=== PATIENT | female | born 1970 | race Caucasian/White ===

== ENCOUNTER 2021-12-20 12:06 | Emergency (ER) | payer BC, SELFPAY ==
[2021-12-20 12:08] VITALS: BP 187/101; PULSE 88; RESP 18; TEMP 35.8; O2SAT 95; BMI 47.0
--- NOTE | 2021-12-20 14:30 | CT_ITS ---
STUDY: CT BRAIN WITHOUT CONTRAST REASON FOR EXAM: Female, 51 years old. 7 onset of severe headaches. RADIATION DOSAGE (If Supplied By Facility): CTDIvol = ( 44.99 ) mGy, DLP = ( 779.24 ) mGycm TECHNIQUE: Transaxial CT imaging of the brain was performed without administration of intravenous contrast material. Individualized dose optimization techniques were used for this CT. COMPARISON: No relevant priors. FINDINGS: Normal soft tissue structures. Normal calvarium. Normal size ventricles and extra-axial spaces for the patient''s age. Normal white matter tracts of the cerebral hemispheres. Normal basal ganglia and thalami. Normal brainstem. Normal cerebellum. There is no intracranial hemorrhage. There are no findings of an acute ischemic infarction. Normal visualized paranasal sinuses. CT/Brain/Head without Contrast IMPRESSION: Normal unenhanced CT scan of the brain. Electronically Signed: Kirill Pleitez MD at 15:33 EDT ,
--- NOTE | 2021-12-20 14:30 | EX.ED.VIS.HA ---
HPI History of Present Illness Chief Complaint: Headache Narrative Narrative: 51-year-old female presenting with headache which started at 8 AM this morning. She went to her primary care physician and states that her blood pressure was normal. He sent her to the emergency room because of the acute onset nature of the headache. She does not have any blurry vision, slurred speech, dizziness currently. She states she was a little bit dizzy earlier today but this is resolved. She does not have any chest pain or shortness of breath. No nausea or vomiting. No light sensitivity or sound sensitivity. She rates her headache pain as a 7. When asked to localize it she holds her whole head with her hands. No history of formal migraine diagnosis PFSH PFS Medical History Hypertension Allergy/AdvReac Type Severity Reaction Status Date / Time Penicillins [PCN] Allergy Shortness Verified 12/20/21 12:07 of breath Social History Smoking Status: Current every day smoker tobacco type: cigarettes ROS ROS ED Constitutional Constitutional ED: Denies chills or fever(s) Eyes Eyes: Denies blurry vision or change in vision ENT ENT ED: Denies rhinorrhea or sore throat Cardiovascular Cardiovascular: Denies chest pain or palpitations Respiratory/Chest Respiratory/Chest: Denies cough Gastrointestinal Gastrointestinal: Denies abdominal pain or constipation Genitourinary Genitourinary ED: Denies dysuria or hematuria Musculoskeletal Musculoskeletal: Denies arthralgias or back pain Integumentary Denies abscess or Abrasions Neurologic Neurologic: Reports headache(s); Denies paresthesias Psychiatric Psychiatric: Denies anxiety or depression EXAM Physical Exam Const Vital Signs: 12/20/21 12:08 Temperature 96.5 F L Temperature Source Temporal Pulse Rate 88 Respiratory Rate 18 Blood Pressure 187/101 H Blood Pressure Mean 129 Pulse Ox 95 Oxygen Delivery Method Room Air Positive well nourished General Appearance ED: NAD; Negative for pallor HEENT Reports normocephalic and moist mucous membranes atraumatic Eyes PERRL and EOMs intact bilaterally General Eye ED: Negative for pale conjunctiva or scleral icterus Neck no lymphadenopathy and no meningeal signs Resp normal respiratory effort and clear to auscultation bilaterally Auscultation: Negative for rales, rhonchi or wheezes Cardio Negative for regular rate or regular rhythm GI non-tender Extremity normal to inspection Neuro oriented x3 and CN's II-XII intact bilaterally Sensorium / Orientation: awake and alert Speech: speech normal Motor Exam: strength 5/5 throughout Psych mental status grossly normal Skin General Skin Exam: Negative for jaundice or pallor MDM MDM MDM Narrative Medical decision making narrative: Presenting with headache which started earlier today. She is not taking anything all day for headache. She states that she has high blood pressure so she did know she can take Tylenol or ibuprofen. She saw her primary care doctor today who sent her to the emergency room because of her headache. She states that her blood pressure at office today was normal. Her initial blood pressure was 187/101 but after rechecking this at the bedside it was 140/87. Patient has no photophobia, phonophobia, blurred vision, dizziness. I did have an IV line established. I gave her Compazine and Benadryl. CBC is within normal limits. BMP shows normal renal function and electrolytes. Her CO2 was slightly elevated at 34 which is only minimally elevated. CT brain is obtained and is negative for acute or cranial findings. Patient feels better on reevaluation at 4:50 PM. She will be discharged home. She is to follow-up with her PCP. Impression: 1. headache Lab Data Attestation: I reviewed the patient's lab results. Labs: Laboratory Results - last 24 hr 12/20/21 12/20/21 15:00 15:00 WBC 7.2 RBC 5.20 Hgb 15.8 H Hct 46.6 MCV 89.6 MCH 30.4 MCHC 33.9 RDW Std Deviation 50.7 H RDW Coeff of Lita 15.2 H Plt Count 294 MPV 9.4 Immature Gran % (Auto) 0.100 Neut % (Auto) 52.3 Lymph % (Auto) 39.5 [place] % (Auto) 6.3 Eos % (Auto) 1.5 Baso % (Auto) 0.3 Absolute Neuts (auto) 3.7 Absolute Lymphs (auto) 2.83 Nucleated RBC % 0 Sodium 140 Potassium 3.6 Chloride 101 Carbon Dioxide 34.0 H Anion Gap 5 BUN 15 Creatinine 0.67 Estim Creat Clear Calc 77.68 Est GFR (MDRD) Af Amer 119 Est GFR (MDRD) Non-Af 98 BUN/Creatinine Ratio 22.5 H Glucose 90 Calcium 9.9 Radiography Diagnostic Testing: Clinical Impression(s) from Imaging Studies Brain CT 12/20/21 14:30 IMPRESSION: Normal unenhanced CT scan of the brain. Electronically Signed: Kirill Pleitez MD at 15:33 EDT Reading Location ID and State: [facility] / [place] , Service support , Discharge Plan Triage Chief Complaint: Headache Other Complaint: Dizziness ED Provider: Felipe Liao Dx/Rx/DC Orders Instructions: ED Headache Unspecified Primary Care Provider: Roberto Yee Referrals: Roberto Yee MD [Primary Care Provider] - Disposition Disposition: Home, Self Care
[2021-12-20] MEDS: proCHLORPERazine 10 MG/2 ML Vial IV (15:06)
[2021-12-20] MEDS: DiphenhydrAMINE 50 MG/ML Syringe 25 MG IV (15:06)
[2021-12-20 15:10] LABS: Absolute Lymphocyte Count 2.83 X10^3/uL (0.83-4.51); Absolute Neutrophil Count 3.7 X10^3/uL (2.0-7.7); Basophil# 0.02 X10^3/uL; Basophil% 0.3 % (0-1); Eosinophil# 0.11 X10^3/uL; Eosinophils% 1.5 % (0-5); Hematocrit 46.6 % (37-47); Hemoglobin 15.8 g/dL (12.0-15.0); Lymphocyte # 2.83 X10^3/ul (0.83-4.51); Lymphocyte % 39.5 % (19-41); Mean Corp Hgb Conc 33.9 g/dL (32-36); Mean Corpuscular Hgb 30.4 pg (27.0-32.0); Mean Corpuscular Volume 89.6 fL (81-99); Mean Platelet Vol. 9.4 fl (6.2-12.0); Monocyte# 0.45 X10^3/uL; Monocyte% 6.3 % (0-10); NRBC Flagged by Analyzer 0 % (0-5); Neutrophil # 3.74 X10^3/uL (2.7-7.7); Neutrophil % 52.3 % (47-70); Platelet Count 294 K/mm3 (150-450); RBC Distribution Width CV 15.2 % (11.6-14.6); RBC Distribution Width SD 50.7 fl (35.1-43.9); White Blood Count 7.2 K/mm3 (4.4-11.0)
[2021-12-20 15:18] LABS: Anion Gap 5 (5-15); BUN 15 mg/dL (7-18); BUN/Creat Ratio 22.5 RATIO (10-20); Calcium,Total 9.9 mg/dL (8.5-10.1); Chloride 101 mmol/L (98-107); Creatinine, Serum 0.67 mg/dL (0.55-1.02); EST Glomerular Filtration Rate 98 mL/min (>60); Est Glom Filt Rate - Afr Amer 119 mL/min (>60); Estimated Creatinine Clearance 77.68 ml/min; Glucose 90 mg/dL (74-106); Potassium 3.6 mmol/L (3.5-5.1); Sodium Level 140 mmol/L (136-145)
[2021-12-20 17:10] VITALS: PULSE 82; RESP 16; O2SAT 97
== END 2021-12-20 17:12 | disposition home or self-care (01) ==
PROVIDERS: Emergency Provider Student in an Organized Health Care Education/Training Program; PCP Family Medicine; Visit Provider Student in an Organized Health Care Education/Training Program
DX: R51.9 Headache, unspecified (principal); F17.210 Nicotine dependence, cigarettes, uncomplicated
CPT/HCPCS: 70450; 80048; 85025; 96374; 96375; 99284; A4216

== ENCOUNTER 2023-12-16 17:49 | Emergency (ER) | payer OTHER, SELFPAY ==
[2023-12-16 17:50] VITALS: BP 161/76; PULSE 89; RESP 18; TEMP 36.4; O2SAT 95; BMI 49.8
[2023-12-16 21:42] VITALS: BP 136/75; PULSE 71; RESP 18; TEMP 36.6; O2SAT 94
--- NOTE | 2023-12-17 02:08 | EDS_ITS ---
HPI History of Present Illness Chief Complaint: Cellulitis Narrative Narrative: Chief complaint and HPI: Left facial swelling. 53-year-old female with history of nasal bone/sinus fracture, HTN presents for evaluation of left facial swelling. Patient states for the past couple days she has had left facial swelling. Swelling is located in the left cheek. She states the swelling is improving. She states she has tenderness in this area. She states this has happened to her before and it was secondary to a sinus infection. She states she was told she is prone to sinus infections given her previous nasal bone/sinus fracture. She denies any swelling elsewhere. Denies any fever, chills, URI symptoms, headache, neck pain, ear pain, eye pain/vision changes, dental pain. Review of systems: See HPI Medications: As listed on the chart Allergies: As listed on the chart PFSH: Per chart Vital signs: As listed on the chart. Reviewed. Physical exam: Gen: A&O x3, NAD Head: Normocephalic, atraumatic Eyes: No sclera icterus, conjunctiva clear, PERRL, EOMI, no periorbital edema ENT: TMs clear BL, moist mucous membranes, posterior oropharynx unremarkable, uvula midline, teeth nontender-no signs of abscess/infection or gingivitis, tolerating secretions, no oral swelling, no Dada angina, mild swelling to the left cheek compared to the right-no erythema or signs of cellulitis, left maxillary sinus is tender to palpation Neck: Trachea midline, No JVD, Full ROM, No meningismus CV: RRR, no murmurs, no peripheral edema Resp: Lungs CTA BL, no w/r/c Neuro: Alert, oriented, grossly intact, sensation intact Psych: Cooperative, appropriate mood and affect [facility] Medical History Hypertension Home Medications ?Medication ?Instructions ?Recorded ?Last Taken ?Type doxycycline hyclate 100 mg capsule 100 mg PO BID 7 days #14 caps 12/16/23 Unknown Rx Allergy/AdvReac Type Severity Reaction Status Date / Time Penicillins (PCN) Allergy Shortness Verified 12/16/23 17:50 of breath Social History Smoking Status: Current every day smoker tobacco type: cigarettes EXAM Physical Exam Const Vital Signs: 12/16/23 17:50 12/16/23 21:42 Temperature 97.6 F L 97.9 F Temperature Source Oral Pulse Rate 89 71 Respiratory Rate 18 18 Blood Pressure 161/76 H 136/75 H Blood Pressure Mean 104 95 Pulse Ox 95 94 Oxygen Delivery Method Room Air MDM MDM MDM Narrative Medical decision making narrative: 53-year-old female presents for evaluation of left cheek swelling. She states that this happened to her in the past and she was treated for sinusitis and it resolved. See physical exam findings. Mild swelling of the left cheek. No periorbital cellulitis or cellulitis of the face. Tenderness to palpation of the left maxillary sinus. Patient's symptoms may be secondary to sinus infection. Patient has an allergy to penicillin. Patient will be placed on doxycycline for 7 days giving this is mild disease. Return precautions were explained such as worsening swelling, erythema, increased pain, fevers, nausea, vomiting. She confirmed understand the plan. Patient stable to discharge home. Patient requesting work note, this was provided. Impression 1. Left cheek swelling 2. Possible sinusitis Discharge Plan Triage Chief Complaint: Cellulitis ED Provider: Saeed Cheung Dx/Rx/DC Orders Clinical Impression: Swelling of left side of face Instructions: Understanding Your Sinuses Prescriptions: New doxycycline hyclate 100 mg capsule 100 mg PO BID 7 Days Qty: 14 0RF Stand Alone Forms: ED Work / School Excuse Primary Care Provider: Roberto Yee Referrals: Roberto Yee MD [Primary Care Provider] - 3-5 Days Activity Restrictions/Additional Instructions: Follow-up with your primary care doctor. Return if symptoms worsen. Print Language: Macedonian Disposition Disposition: Home, Self Care Discharge Date/Time: 12/16/23 21:44
== END 2023-12-16 21:44 | disposition home or self-care (01) ==
PROVIDERS: Emergency Provider Surgery; PCP Family Medicine; Visit Provider Surgery
DX: R22.0 Localized swelling, mass and lump, head (principal); F17.210 Nicotine dependence, cigarettes, uncomplicated
CPT/HCPCS: 99282